=== PATIENT | female | born 1940 | race Caucasian/White ===

== ENCOUNTER → 2017-04-14 10:22 | Outpatient (CLI) | payer MEDICARE, OTHER ==
[2011-12-23 07:32] VITALS: BMI 32.5
== END | disposition home or self-care (01) ==
LOC: D.LAB 10:22 → D.CT 11:00
DX: I10 Essential (primary) hypertension (principal)

== ENCOUNTER → 2017-05-06 14:06 | Outpatient (CLI) | payer MEDICARE, OTHER ==
[2011-12-23 07:32] VITALS: BMI 32.5
== END | disposition home or self-care (01) ==
LOC: D.MAMMO 04-02 10:45
DX: Z12.31 Encounter for screening mammogram for malignant neoplasm of breast (principal)

== ENCOUNTER 2018-07-20 20:56 | Observation (INO) | payer MEDICARE, OTHER ==
--- NOTE | ~2018-07-20 | HEMODYNAMI ---
PATIENT:BASSAM VALENTIN MEDICAL RECORD: [id number] : 42 [facility] [id number] ADMISSION DATE: 07/20/18 Generatedon:07/21/201812:07 Patient name: BASSAM VALENTIN Patient #: [id number] SSN: : 1940 Date of study: 07/21/2018 Page: Of Hemodynamic Procedure Report Patient Data Patient Demographics Procedure consent was obtained First Name: BASSAM Gender: Female Last Name: HOMERO : 1940 Middle Initial: C Age: 77 year(s) Patient #: [id number] Race: Unknown Additional ID: [id number] Contact details Address: [address] State: [place] City: [place] Zip code: [address] Past Medical History Allergies: No known allergies Admission Admission Data Admission Date: 07/20/2018 Admission Time: 22:34 Room #: D.2124 Height (in.): 64 BSA: 1.89 (m2) Height (cm.): 162.56 BMI: 31.79 (kg/m2) Weight (lbs.): 185.19 Weight (kg.): 84 Lab Results Lab Result Date: 07/21/2018 Lab Result Time: 0:00 Biochemistry Name Units Result Min Max BUN mg/dl 41 --(----)-* 7 18 Creatinine mg/dl 1.3 --(---*)-- 0.6 1.3 CBC Name Units Result Min Max Hematocrit % 31.7 *-(----)-- 42 54 Hemoglobin g/dl 10.5 *-(----)-- 13.5 17.5 Procedure Procedure Types Cath Procedure Diagnostic Procedure [facility] w/Coronaries Procedure Description Procedure Date Procedure Date: 07/21/2018 Procedure Start Time: 11:55 Procedure End Time: 12:03 Procedure Staff Name Function Asa Mcdermott MD Performing Physician Karli Farr RT Monitor Felecia Aden RT Scrub Cristela Juarez RN Nurse Fuad Kaur RN First Mate Procedure Data Cath Procedure Fluoroscopy Diagnostic fluoroscopy Total fluoroscopy Time: 1.8 time: 1.8 min min Diagnostic fluoroscopy Total fluoroscopy dose: 436 dose: 436 mGy mGy Contrast Material Contrast Material Type Amount (ml) Isovue 300 36 Entry Location Entry Primary Successful Side Size Upsize Upsize Entry Closure [place] ccessful Closure Location (Fr) 1 (Fr) 2 (Fr) Remarks Device Remarks Radial Right 6 Fr Mechanical artery Short Compression Estimated blood loss: 5 ml Diagnostic catheters Device Type Used For End Catheter Placement DIAGNOSTIC Dresser 110cm 5 Multi-vessel Fr catheter ([id number]) Angiography Procedure Complications No complications Procedure Medications Medication Administration Route Dosage Oxygen etCO2 Nasal cannula 2 l/min Lidocaine 2% added to field 20 Heparin Flush Bag added to field 2 bags (1000units/500ml NS) Radial Cocktail I.A. 1 syringe (Verapomil 2mg/Nitro 400mcg/Heparin 1500units) Versed I.V. 1 mg Fentanyl I.V. 50 mcg Versed I.V. 1 mg Fentanyl I.V. 50 mcg Fentanyl I.V. 50 mcg Hemodynamics Rest BSA: 1.89 (m2) O2 Consumption: Estimated: 174.31 (ml/min) O2 Consumption indexed : Estimated:92.23 (ml/min/m) Heart Rate: 74 (bpm) Pressure Samples Time Site Value (mmHg) Purpose Heart Use Rate(bpm) 11:57 LV 127/-7,0 Snapshot 88 11:58 AO 124/55(83) Pullback 96 11:58 LV 122/-6,1 Pullback 96 Gradients Valve Time Site 1 Site 2 Mean SEP/DFP Peak To Heart Use (mmHg) (sec/min) Peak Rate (mmHg) (bpm) Aortic 11:58 LV AO 0 9 0 96 122/-6,1 124/55(83) Calculations Valve P-P Mean Valve Index Valve Source Name Gradient Area Flow (cm2) Aortic 0 0 0 0 Snapshots Pre Cath Intra NCS Post Cath Vital Signs Time Heart Resp SPO2 etCO2 NIBP (mmHg) Rhythm Pain Sedation Rate (ipm) (%) (mmHg) Status Level (bpm) 11:50:00 78 17 100 34.9 147/72(115) NSR 0 (11) 10(A) , No pain 11:54:20 68 13 95 0 133/66(105) NSR 0 (11) 10(A) , No pain 11:58:36 83 13 94 40.8 114/68(96) NSR 0 (11) 9(A) , No pain 12:02:44 84 13 95 31.9 122/69(107) NSR 0 (11) 10(A) , No pain Medications Time Medication Route Dose Verified Delivered Reason Notes Effectiveness by by 11:48:58 Oxygen etCO2 2 l/min Asa Buffie used for Nasal Baldemar Juarez RN procedure cannula 11:49:04 Lidocaine 2% added 20ml Asa Asa for local to vial Baldemar Mcdermott MD anesthetic field 11:49:12 Heparin Flush added 2 bags Asa Asa used for Bag to Baldemar Mcdermott MD procedure (1000units/500ml field NS) 11:53:41 Versed I.V. 1 mg Asa Buffie for sedation Baldemar Juarez RN 11:53:48 Fentanyl I.V. 50 mcg Asa Buffie for sedation Baldemar Juarez RN 11:56:00 Versed I.V. 1 mg Asa Buffie for sedation Baldemar Juarez RN 11:56:06 Fentanyl I.V. 50 mcg Asa Buffie for sedation Baldemar Juarez RN 11:57:13 Radial Cocktail I.A. 1 Asa Asa for (Verapomil syringe Baldemar Mcdermott MD vasodilation 2mg/Nitro 400mcg/Heparin 1500units) 12:00:42 Fentanyl I.V. 50 mcg Asa Buffie for sedation Baldemar Juarez RN Procedure Log Time Note 11:24:30 Signed procedure consent form obtained from patient. 11:24:31 Diagnostic Cath status Elective 11:24:32 Time tracking: Regular hours (M-F 7:00 - 5:00) 11:24:36 Plan of Care:Hemodynamics will remain stable., Cardiac rhythm will remain stable., Comfort level will be maintained., Respiratory function will remain adequate., Patient/ family verbilizes understanding of procedure., Procedure tolerated without complication., Recovers from procedure without complications.. 11:24:44 Patient allergic to No known allergies 11:25:17 Lab Result : BUN 41 mg/dl 11::17 Lab Result : Creatinine 1.3 mg/dl ::17 Lab Result : Hemoglobin 10.5 g/dl 11:25:17 Lab Result : Hematocrit 31.7 % 11:25:27 Patient Weight : 185.19 lbs 11:25:30 Patient Height : 64 inches 11:26:40 Fuad Kaur RN sent for patient. Start room use. 11:37:31 Patient received from Med II to CCL 2 Alert and oriented. Tansferred to table in Supine position. 11:37:32 Warm blankets applied, and sudha hugger turned on for patient comfort. 11:37:33 Correct patient and procedure confirmed by team. 11:37:33 ECG and BP/O2 sat monitors applied to patient. 11:48:47 Vital chart was started 11:48:58 Oxygen 2 l/min etCO2 Nasal cannula was administered by Cristela Juarez RN; used for procedure; 11:49:04 Lidocaine 2% 20ml vial added to field was administered by Asa Mcdermott MD; for local anesthetic; 11:49:12 Heparin Flush Bag (1000units/500ml NS) 2 bags added to field was administered by Asa Mcdermott MD; used for procedure; 11:49:24 Baseline sample Acquired. 11:49:30 Rhythm: sinus rhythm 11:49:32 Full Disclosure recording started 11:49:36 H&P Date Dictated: 07/21/2018 Within 30 days and on chart., H&P Addendum completed by physician on day of procedure. (MUST COMPLETE FOR ALL OUTPATIENTS). 11:49:37 Pre-procedure instructions explained to patient. 11:49:38 Pre-op teaching completed and patient verbalized understanding. 11:49:39 Family in waiting room. 11:49:40 Patient NPO since Midnight. 11:49:43 Was the patient premedicated? No 11:50:20 Patient diabetic? No. 11:50:23 Previous problem with sedation/anesthesia? No ? 11:50:24 Snore? Yes 11:50:26 Sleep apnea? No 11:50:27 Deviated septum? No 11:50:28 Opens mouth fully? Yes 11:50:28 Sticks out tongue? Yes 11:50:31 Airway obstruction? No ? 11:50:36 Dentures? Yes in tight 11:50:39 Pre procedure: right dorsailis pedis pulse 2+ Normal; easily identifiable; not easily obliterated 11:50:41 Pre procedure: left dorsailis pedis pulse 2+ Normal; easily identifiable; not easily obliterated 11:50:44 Patient pain scale 0/10 ?. 11:50:50 IV patent on arrival in left antecubital with 0.9% NaCl at O. 11:50:53 Lab results completed and on chart. 11:50:59 Right Radial & Right Groin area was prepped with chlora-prep and draped in sterile fashion 11:51:00 Alarms reviewed by R. N. 11:51:01 Sharps counted by scrub and verified by R.N. 11:51:02 Physician arrived 11:51:02 --------ALL STOP TIME OUT------ 11:51:03 Final Timeout: patient, procedure, and site verified with staff and physician. All members of the team are in agreement. 11:51:05 Right Radial & Right Groin site verified by team. 11:51:12 Maximum allowable Isovue 300 dose 300ml. Physician notified. (300ml for normal creatinines. For patients with creatinine of 1.7 or higher multiply weight(kg) x 5 divided by creatinine.) 11:51:17 Fire Safety Assessment: A--An alcohol-based skin anteseptic being used preoperatively., C--Open oxygen or nitrous oxide is being used., D--An ESU, laser, or fiber-optic light is being used. 11:51:20 Physical assessment completed. ASA score P 2 - A patient with mild systemic disease as per Asa Mcdermott MD. 11:51:23 Sedation plan: IV Moderate Sedation Medication:Versed, Fentanyl 11:51:27 Use device set Radial Dx or PCI 11:51:28 ACIST Syringe (82275) opened to sterile field. 11:51:28 Medline Cath Pack ([id number]) opened to sterile field. 11:51:29 Bag Decanter () opened to sterile field. 11:51:29 DIAGNOSTIC WIRE .035 260cm J wire (158932) opened to sterile field. 11:51:30 ACIST Hand Control (96000) opened to sterile field. 11:51:30 ACIST Manifold (53728) opened to sterile field. 11:51:31 Tegaderm 4 x 4 (1626W) opened to sterile field. 11:51:31 MBrace Wrist Support ([id number]) opened to sterile field. 11:51:32 NEEDLE Cook 21G 4cm Radial ([id number]) opened to sterile field. 11:51:33 SHEATH 6FR Slender (80-2780) opened to sterile field. 11:53:10 Procedure started. 11:53:41 Versed 1 mg I.V. was administered by Cristela Juarez RN; for sedation; 11:53:48 Fentanyl 50 mcg I.V. was administered by Cristela Juarez RN; for sedation; 11:55:15 Local anesthetic to right radial artery with Lidocaine 2% by Asa Mcdermott MD.INITIAL ACCESS ONLY 11:55:24 A 6 Fr Short sheath was inserted into the Right Radial artery 11:56:00 Versed 1 mg I.V. was administered by Cristela Juarez RN; for sedation; 11:56:06 Fentanyl 50 mcg I.V. was administered by Cristela Juarez RN; for sedation; 11:56:19 A DIAGNOSTIC Dresser 110cm 5 Fr catheter (763440) was advanced over the wire and used for Multi-vessel Angiography. 11:57:06 LV hemodynamics recorded. 11:57:09 LV gram done using LEON 11:57:11 Injector settings: Ml/sec: 5, Volume: 15, 11:57:13 Radial Cocktail (Verapomil 2mg/Nitro 400mcg/Heparin 1500units) 1 syringe I.A. was administered by Asa Mcdermott MD; for vasodilation; 11:58:08 EF : 60 % 11:59:10 LCA angiography performed. 11:59:15 Injector settings: Ml/sec: 3, Volume: 6, 12:00:42 Fentanyl 50 mcg I.V. was administered by Cristela Juarez RN; for sedation; 12:00:57 RCA angiography performed. 12:01:01 Injector settings: Ml/sec: 3, Volume: 6, 12:01:23 Catheter removed. 12:01:28 TR BAND Standard ([id number]) opened to sterile field. 12:01:56 Sheath removed intact; hemostasis achieved with Mechanical Compression to the Right Radial artery. 12:02:00 Procedure ended.(Physican Out) 12:02:30 Fluoroscopy time 01.80 minutes. 12:02:36 Fluoroscopy dose: 436 mGy 12:02:36 Flurop Dose total: 436 12:02:40 Contrast amount:Isovue 300 36ml. 12:02:42 Sharps counted by scrub and verified by R.N. 12:02:46 TR band inflated with 11cc of air. 12:02:47 Insertion/operative site no bleeding no hematoma. 12:02:49 Post Procedure Pulses reassessed and unchanged 12:02:52 Post procedure rhythm: unchanged. 12:02:56 Estimated blood loss: 5 ml 12:03:05 Post procedure instruction explained to patient.Patient verbalizes understanding. 12:03:06 Patient needs reinforcement of post procedure teaching. 12:03:13 Procedure and supply charges have been captured, reviewed, submitted and are correct. 12:03:17 Procedure Complication : No complications 12:03:19 Vital chart was stopped 12:03:20 See physician's report for complete and final results. 12:03:22 Report given to Med II. 12:03:33 Patient transfered to [facility] II with Stretcher. 12:03:35 Procedure ended. 12:03:35 Full Disclosure recording stopped 12:04:11 End room use (Document Last) Device Usage Item Name Manufacture Quantity Catalog Hospital Part Current Minimal Lot# / Number Charge Number Stock Stock Serial# Code ACIST Acist 1 25934 909372 759971 915598 20 Syringe Medical (56920) Systems Inc Medline Medline 1 [id number] 128890 57569 269222 5 Cath Pack ([id number]) Bag Microtek 1 2001S 659591 91383 609755 5 Decanter Medical Inc. () DIAGNOSTIC St Junaid 1 547430 184753 223720 455878 30 WIRE .035 260cm J wire (738734) ACIST Hand Acist 1 03066 777480 563252 587925 5 Control Medical (48834) Systems Inc ACIST Acist 1 87268 692252 501156 884362 5 Manifold Medical (10630) Systems Inc Tegaderm 4 3M 1 1626W 982320 425527 071312 5 x 4 (1626W) MBrace Advanced 1 140-0250-00 072223 74542 387606 5 Wrist Vascular Support Dynamics (863943035) NEEDLE FDTEK Medical 1 K67663 919846 706433 558925 5 21G 4cm Radial (G75606) SHEATH 6FR Terumo 1 [id number] 696949 185553 773957 5 Slender (29-1780) DIAGNOSTIC Terumo 1 40-8911 616227 359797 529586 5 Dresser 110cm 5 Fr catheter (103024) TR BAND Terumo 1 [id number] 966916 666471 932757 40 Standard ([id number]) Signature Audit [place] Stage Time Signature Unsigned Intra-Procedure 07/21/2018 Karli Farr 12:07:02 PM RT(R) Signatures Monitor : Karli Farr RT Signature : Date : Time : [id number] [place] [address]
[2018-07-20] MEDS ORDERED: HYDROCHLOROTH12.5 M1 PO (21:08)
[2018-07-20] MEDS ORDERED: MOBIC7.5 MG PO (21:08)
[2018-07-20] MEDS ORDERED: LISINOPRIL40 MG PO (21:08)
[2018-07-20] MEDS ORDERED: LIPITOR40 MG (21:08)
[2018-07-20] MEDS ORDERED: NORVASC5 MG PO (21:09)
[2018-07-20 21:19] VITALS: BP 149/72
[2018-07-20 21:24] LABS: BASOPHILS 0.3 % (0-2); EOSINOPHILS 4.2 % (0-7); HEMATOCRIT 33.9 % (36.0-48.0); HEMOGLOBIN 11.4 g/dL (12-16); IMMATURE GRANULOCYTES 0.4 % (0-5); LYMPHOCYTES 37.7 % (15-50); MCH 30.6 pg (26.0-34.0); MCHC 33.6 g/dL (31.0-37.0); MCV 90.9 fL (80.0-100.0); MEAN PLATELET VOLUME 8.6 fL (7.4-10.4); MONOCYTES 8.3 % (2-11); NEUTROPHILS 49.1 % (40-80); PLATELET COUNT 262 10x3/uL (130-400); RBC 3.73 10x6/uL (4.00-5.40); RDW 13.7 % (11.5-14.5); WBC 7.6 10x3/uL (4.8-10.8)
[2018-07-20 21:54] LABS: ALBUMIN 3.6 g/dL (3.4-5.0); ALKALINE PHOSPHATASE 76 U/L (46-116); ALT (SGPT) 26 U/L (10-68); BILIRUBIN - TOTAL 0.22 mg/dL (0.2-1.3); CALC OSMOLALITY 277 mosm/kg (275-300); CARBON DIOXIDE 24.6 mmol/L (21.0-32.0); CHLORIDE - SERUM 99 mmol/L (98-107); CKMB 4.6 U/L (0.0-3.6); GLUCOSE 103 mg/dL (74-106); POTASSIUM - SERUM 4.4 mmol/L (3.5-5.1); PROTEIN - SERUM 7.5 g/dL (6.4-8.2); SODIUM 134 mmol/L (136-145); UREA NITROGEN 41 mg/dL (7-18)
[2018-07-20 22:02] LABS: APTT 31.8 SECONDS (22.8-39.4); INR 0.9 (0.85-1.17); PROTIME 11.7 SECONDS (11.6-15.0)
[2018-07-20 22:15] LABS: CALCIUM 8.4 mg/dL (8.5-10.1); CREATINE KINASE 225 UL (21-215); CREATININE - SERUM 1.3 mg/dL (0.6-1.3); TROPONIN-I < 0.017 ng/mL (0.000-0.060); eGFR NON AFRICAN AMERICAN 42 mL/min (90-120)
[2018-07-21] VITALS: BP 120/64
[2018-07-21 04:01] VITALS: BMI 28.7
[2018-07-21 05:02] VITALS: BP 131/73
[2018-07-21 05:39] LABS: CKMB 3.7 U/L (0.0-3.6); CREATINE KINASE 169 UL (21-215)
[2018-07-21 05:40] LABS: TROPONIN-I < 0.017 ng/mL (0.000-0.060)
[2018-07-21 07:13] LABS: BASOPHILS 0.3 % (0-2); EOSINOPHILS 5.3 % (0-7); HEMATOCRIT 31.7 % (36.0-48.0); HEMOGLOBIN 10.5 g/dL (12-16); IMMATURE GRANULOCYTES 0.2 % (0-5); LYMPHOCYTES 37.1 % (15-50); MCH 30.2 pg (26.0-34.0); MCHC 33.1 g/dL (31.0-37.0); MCV 91.1 fL (80.0-100.0); MEAN PLATELET VOLUME 8.9 fL (7.4-10.4); MONOCYTES 12.3 % (2-11); NEUTROPHILS 44.8 % (40-80); PLATELET COUNT 262 10x3/uL (130-400); RBC 3.48 10x6/uL (4.00-5.40); RDW 13.9 % (11.5-14.5); WBC 6.3 10x3/uL (4.8-10.8)
[2018-07-21 07:18] LABS: ANION GAP 13.1 mmol/L (8-16); CALCIUM 8.4 mg/dL (8.5-10.1); CARBON DIOXIDE 26.1 mmol/L (21.0-32.0); CREATININE - SERUM 1.1 mg/dL (0.6-1.3); POTASSIUM - SERUM 4.2 mmol/L (3.5-5.1)
[2018-07-21 09:39] VITALS: BP 139/61
[2018-07-21 11:45] VITALS: BP 116/63
[2018-07-21] MEDS ORDERED: OMNICEF300 MG PO (15:25)
[2018-07-21 16:48] VITALS: BP 113/55
--- NOTE | 2018-07-22 08:44 | MORECARE ---
CASE MANAGEMENT DISCHARGE SUMMARY PATIENT: BASSAM VALENTIN UNIT: [id number] ADM DATE: 07/20/18 AGE: 77 : 41 SEX: F ROOM/BED: D.7835 AUTHOR: LUIS ARMANDO CORONADO PHYSICIAN: REFERRING PHYSICIAN: ADELITA JEAN DO DATE OF SERVICE: 07/22/18 Discharge Plan Patient Name: [facility]ASSAM VALENTIN [facility] [facility] 1940 Planned Disposition: Home Anticipated Discharge Date: 07/21/18 Discharge Date: 07/21/2018 Expected LOS: 1 Initial Reviewer: [email or web address] Initial Review Date: 07/22/2018 Generated: 07/22/18 9:44 am Patient Name: BASSAM VALENTIN Page [phone] at 0844 All edits/amendments must be made on the electronic document DICTATION DATE: 07/22/18843 RETAIL BUYER: ROBINA 07/22/1844 RPT#: [id number] DC DATE:07/21/18 STATUS: DIS IN [facility] [address] [place] [address] END OF REPORT
== END 2018-07-21 18:37 | disposition home or self-care (01) ==
LOC: D.ER 20:56 → D.EDHOLD 22:34 → D.M2 23:14
PROVIDERS: Emergency Medicine; Internal Medicine Cardiovascular Disease; ADMIT Family Medicine
DX: R07.89 Other chest pain (principal); Q24.5 Malformation of coronary vessels; I10 Essential (primary) hypertension; E11.65 Type 2 diabetes mellitus with hyperglycemia; J40 Bronchitis, not specified as acute or chronic; M54.9 Dorsalgia, unspecified; G89.29 Other chronic pain

== ENCOUNTER 2018-08-01 02:56 | Inpatient (IN) | payer MEDICARE, OTHER ==
[~2018-08-01] VITALS: Ht 160 cm; Wt 84.5 kg
[~2018-08-01 02:56] MED LIST: HYDROCHLOROTH12.5 M1 PO; LIPITOR40 MG PO; LISINOPRIL40 MG PO; MOBIC7.5 MG PO; NORVASC5 MG PO; OMNICEF300 MG PO
[2018-08-01 03:36] LABS: BASOPHILS 0.1 % (0-2); EOSINOPHILS 0.5 % (0-7); HEMATOCRIT 34.4 % (36.0-48.0); HEMOGLOBIN 11.5 g/dL (12-16); IMMATURE GRANULOCYTES 0.2 % (0-5); LYMPHOCYTES 12.1 % (15-50); MCH 30.8 pg (26.0-34.0); MCHC 33.4 g/dL (31.0-37.0); MCV 92.2 fL (80.0-100.0); MEAN PLATELET VOLUME 8.6 fL (7.4-10.4); MONOCYTES 8.3 % (2-11); NEUTROPHILS 78.8 % (40-80); RBC 3.73 10x6/uL (4.00-5.40); RDW 14.4 % (11.5-14.5); WBC 15.2 10x3/uL (4.8-10.8)
[2018-08-01 03:39] LABS: PLATELET COUNT 317 10x3/uL (130-400)
[2018-08-01 03:47] LABS: APTT 28.3 SECONDS (22.8-39.4); INR 0.94 (0.85-1.17); PROTIME 12.1 SECONDS (11.6-15.0)
[2018-08-01 04:01] LABS: ALBUMIN 3.3 g/dL (3.4-5.0); ALKALINE PHOSPHATASE 76 U/L (46-116); ALT (SGPT) 25 U/L (10-68); BILIRUBIN - TOTAL 0.39 mg/dL (0.2-1.3); CALC OSMOLALITY 284 mosm/kg (275-300); CALCIUM 8.3 mg/dL (8.5-10.1); CARBON DIOXIDE 27.4 mmol/L (21.0-32.0); CHLORIDE - SERUM 102 mmol/L (98-107); CREATININE - SERUM 1.1 mg/dL (0.6-1.3); GLUCOSE 113 mg/dL (74-106); POTASSIUM - SERUM 3.9 mmol/L (3.5-5.1); PROTEIN - SERUM 7.1 g/dL (6.4-8.2); SODIUM 139 mmol/L (136-145); UREA NITROGEN 30 mg/dL (7-18); eGFR NON AFRICAN AMERICAN 51 mL/min (90-120)
[2018-08-01 04:04] LABS: CKMB 1.2 U/L (0.0-3.6); CREATINE KINASE 83 UL (21-215)
[2018-08-01 04:18] LABS: TROPONIN-I < 0.017 ng/mL (0.000-0.060)
[2018-08-01 04:21] LABS: APPEARANCE HAZY (CLEAR); BILIRUBIN NEGATIVE (NEGATIVE); COLOR YELLOW (YELLOW); GLUCOSE NEGATIVE (NEGATIVE); KETONE NEGATIVE (NEGATIVE); NITRITE NEGATIVE (NEGATIVE); PROTEIN NEGATIVE (NEGATIVE); SPECIFIC GRAVITY 1.015 (1.005-1.020); UROBILINOGEN NORMAL (NORMAL)
[2018-08-01 04:30] VITALS: BP 125/58
--- NOTE | 2018-08-01 05:02 | NUR ---
FROM ER VIA WC TO BED THAT IS LOW AND LOCKED CALL LIGHTR GIVEN TO PT PT IS ALERT AND ORIETED AT THIS TIME SKIN GOOD LCTA CO HEADACHE AT THIS TIME IV TO LEFT AC PATENT
[2018-08-01 05:13] VITALS: BP 110/59; BMI 32.6
[2018-08-01 05:55] VITALS: BP 110/59
[2018-08-01 08:08] VITALS: BP 126/54
[2018-08-01 12:08] VITALS: BP 109/49
[2018-08-01 22:04] VITALS: BP 120/56
[2018-08-02 00:04] VITALS: BP 125/54
--- NOTE | 2018-08-02 04:28 | NUR ---
I have reviewed this patient and I concur with the Shift Assessment completed by the Licensed Practical Nurse today this shift.
[2018-08-02 05:55] VITALS: BP 118/49
[2018-08-02 06:52] LABS: ALBUMIN 2.6 g/dL (3.4-5.0); ANION GAP 13.7 mmol/L (8-16); BILIRUBIN - TOTAL 0.38 mg/dL (0.2-1.3); CALCIUM 7.8 mg/dL (8.5-10.1); CREATININE - SERUM 0.9 mg/dL (0.6-1.3); POTASSIUM - SERUM 3.7 mmol/L (3.5-5.1)
--- NOTE | 2018-08-02 07:00 | NUR ---
RECEIVED REPORT. ASSUMED CARE OF PATIENT. CALL LIGHT WITHIN REACH. PATIENT WITH EYES OPEN, RESP EVEN AND UNLABORED. NO DISTRESS. DENIES NEEDS. PATIENT HAS STUDENT NURSE THIS AM. PATIENT VERY TALKATIVE AND SMILING.
[2018-08-02 07:28] LABS: HEMATOCRIT 29.7 % (36.0-48.0); HEMOGLOBIN 9.9 g/dL (12-16); MCH 30.6 pg (26.0-34.0); MCHC 33.3 g/dL (31.0-37.0); MCV 91.7 fL (80.0-100.0); MEAN PLATELET VOLUME 9.8 fL (7.4-10.4); PLATELET COUNT 264 10x3/uL (130-400); RBC 3.24 10x6/uL (4.00-5.40); RDW 14.4 % (11.5-14.5); WBC 14.2 10x3/uL (4.8-10.8)
[2018-08-02 07:42] VITALS: BP 106/40
[2018-08-02 08:05] LABS: ANISOCYTOSIS OCC; EOSINOPHILS 2 % (0-7); HYPOCHROMASIA OCC; LYMPHOCYTES 18 % (15-50); MONOCYTES 14 % (2-11); NEUTROPHILS 62 % (40-80); PLATELET ESTIMATE NORMAL; ROULEAUX OCC; SMUDGE CELLS OCC
--- NOTE | 2018-08-02 11:01 | NUR ---
NPO FOR CTA OF CHEST THIS AFTERNOON.
[2018-08-02 11:25] VITALS: BP 127/66
--- NOTE | 2018-08-02 11:38 | NUR ---
FSBS 93. NO INSULIN PER SLIDING SCALE. NO DISTRESS.
[2018-08-02 14:02] VITALS: Ht 160 cm; Wt 84.5 kg
--- NOTE | 2018-08-02 14:06 | NUR ---
CALLED RADIOLOGY TO SEE WHEN THEY WOULD COME GET PATIENT FOR CTA OF CHEST. SPOKE WITH DAE AND DAE TRANSFERRED ME TO 1333. NO ANSWER.
--- NOTE | 2018-08-02 15:15 | NUR ---
PATIENT LEFT UNIT VIA WHEELCHAIR FOR CTA OF CHEST. NO DISTRESS.
[2018-08-02 15:26] VITALS: BP 129/43
--- NOTE | 2018-08-02 15:43 | NUR ---
RETURNED FROM HAVING CTA OF CHEST. NO DISTRESS. IV FLUIDS INFUSING ORDERED. PATIENT NOW CONSUMING SANDWICH AND ORANGES. CALL LIGHT WITHIN REACH. NO DISTRESS.
--- NOTE | 2018-08-02 16:37 | NUR ---
FSBS 143. NO INSULIN PER SLIDING SCALE. NO DISTRESS.
--- NOTE | 2018-08-02 19:25 | NUR ---
BED LOW AND CALL LIGHT IN REACH PT WANTING TO GET UP FOR SHOWER AND I ASSISTED WITH RETRIEVING TOWELS AND STOPPING IV....DENIES PAIN AT THIS TIME LCTA SKIN WARM AND DRY PT ALERT AND UP ADLIB
[2018-08-02 21:27] VITALS: BP 159/73
[2018-08-03 00:38] VITALS: BP 101/50
[2018-08-03 05:35] LABS: BASOPHILS 0.3 % (0-2); EOSINOPHILS 4.3 % (0-7); HEMATOCRIT 29.8 % (36.0-48.0); HEMOGLOBIN 9.8 g/dL (12-16); IMMATURE GRANULOCYTES 0.1 % (0-5); LYMPHOCYTES 26.4 % (15-50); MCH 30.2 pg (26.0-34.0); MCHC 32.9 g/dL (31.0-37.0); MEAN PLATELET VOLUME 8.9 fL (7.4-10.4); MONOCYTES 15.1 % (2-11); NEUTROPHILS 53.8 % (40-80); PLATELET COUNT 274 10x3/uL (130-400); RBC 3.24 10x6/uL (4.00-5.40); RDW 14.5 % (11.5-14.5)
[2018-08-03 05:40] LABS: WBC 7.5 10x3/uL (4.8-10.8)
[2018-08-03 06:15] VITALS: BP 128/58
[2018-08-03 06:27] LABS: ALBUMIN 2.6 g/dL (3.4-5.0); ANION GAP 10.1 mmol/L (8-16); BILIRUBIN - TOTAL 0.14 mg/dL (0.2-1.3); CALCIUM 7.8 mg/dL (8.5-10.1); CARBON DIOXIDE 26.8 mmol/L (21.0-32.0); POTASSIUM - SERUM 3.9 mmol/L (3.5-5.1); PROTEIN - SERUM 5.9 g/dL (6.4-8.2)
[2018-08-03 08:03] VITALS: BP 150/61
--- NOTE | 2018-08-03 10:46 | NUR ---
PTS PIV INFILTRATED AND SHE REQUESTED NOT TO HAVE ANOTHER ONE HAD JUST ROUNDED AND STATED SHE CAN BE COVERTED TO [facility] AND BE DISCHARGED. WILL DISCUSS WITH PRIMARY AND SEE ABOUT DISCHARGE PLANNING.
--- NOTE | 2018-08-03 11:32 | NUR ---
PRIMARY STATES PT WILL BE DISCHARGED, MAY LEAVE PIV OUT. NO CURRENT NEEDS.
[2018-08-03 11:50] VITALS: BP 123/55
[2018-08-03] MEDS ORDERED: MUCINEX DM ER1 EAC1 PO (12:18)
[2018-08-03] MEDS ORDERED: FLUTICASONE PRO16 GM NASAL (12:19)
[2018-08-03] MEDS ORDERED: TESSALON PERLE100 MG PO (12:19)
[2018-08-03] MEDS ORDERED: LEVAQUIN750 MG PO (12:19)
[2018-08-03] MEDS ORDERED: SINGULAIR10 MG PO (12:19)
--- NOTE | 2018-08-03 14:09 | NUR ---
DISCHARGE TEACHING PROVIDED AND PAPERS SIGNED. PT VERBALIZED UNDERSTANDING AND DENIES ANY QUESTIONS OR CONCERNS. ALL BELONGING COLLECTED AND PT HAS CALLED HER FRIEND FOR TRANSPORTATION. NO FURTHER NEEDS.
--- NOTE | 2018-08-03 14:39 | NUR ---
PT LEAVING NOW. NO FURTHER.
--- NOTE | 2018-08-03 14:47 | MORECARE ---
CASE MANAGEMENT DISCHARGE SUMMARY PATIENT: BASSAM VALENTIN UNIT: [id number] ADM DATE: 08/01/18 AGE: 77 : 41 SEX: F ROOM/BED: D.1658 AUTHOR: LUIS ARMANDO CORONADO PHYSICIAN: REFERRING PHYSICIAN: SALLY MONTOYA MD DATE OF SERVICE: 08/03/18 Discharge Plan Patient Name: BASSAM VALENTIN [facility]:[place] : 1940 Planned Disposition: Home Anticipated Discharge Date: 08/03/18 Discharge Date: 08/03/2018 Expected LOS: 2 Initial Reviewer: [email or web address] Initial Review Date: 08/03/2018 Generated: 08/03/18 3:46 pm Comments DCP- Discharge Planning Updated by [email or web address]: Teo Antony on 08/03/18 1:[address] Patient Name: BASSAM VALENTIN Admission Status: ER Accout number: [id number] Admission Date: 08-01-2018 : 1940 Admission Diagnosis: Attending: SALLY MONTOYA Current LOS: 2 Anticipated DC Date: 08-03-2018 Planned Disposition: Home Primary Insurance: MEDICARE A & B Discharge Planning Comments: CM RECEIVED DISCHARGE ORDER, ATTEMPTED TO SEE PT IN ROOM TO ASSESS FOR DISCHARGE NEEDS AND PROVIDE AN IMPORTANT MESSAGE FROM MEDICARE. PT HAD BEEN DISCHARGE HOME ALREADY AND LEFT THE ROOM. Core Piler: Teo Antony Patient Name: BASSAM VALENTIN Page 33240 at 1447 All edits/amendments must be made on the electronic document DICTATION DATE: 08/03/18 1446 TOUCH UP CARVER: ROBINA 08/03/18 1446 RPT#: [id number] DC DATE:08/03/18 STATUS: DIS IN [facility] [address] [place] [address] END OF REPORT
== END 2018-08-03 14:40 | disposition home or self-care (01) | DRG 179 ==
LOC: D.ER 02:56 → D.M2 04:07
PROVIDERS: Family Medicine; Family Medicine Adult Medicine; ADMIT Internal Medicine Nephrology; ATTEND Internal Medicine Nephrology
DX: J15.6 Pneumonia due to other Gram-negative bacteria (principal); D64.9 Anemia, unspecified; E11.65 Type 2 diabetes mellitus with hyperglycemia; I10 Essential (primary) hypertension; M19.90 Unspecified osteoarthritis, unspecified site; K21.9 Gastro-esophageal reflux disease without esophagitis; E78.5 Hyperlipidemia, unspecified; J30.9 Allergic rhinitis, unspecified

== ENCOUNTER 2018-12-02 09:00 | Outpatient (CLI) | payer MEDICARE, OTHER ==
[2018-08-02 14:02] VITALS: BMI 29.4
[~2018-12-02 09:00] MED LIST changes: +FLUTICASONE PRO16 GM NASAL; +LEVAQUIN750 MG PO; +MUCINEX DM ER1 EAC1 PO; +SINGULAIR10 MG PO; +TESSALON PERLE100 MG PO
== END 2018-12-02 10:00 | disposition home or self-care (01) ==
LOC: D.MAMMO 09:00
PROVIDERS: ATTEND Family Medicine
DX: Z12.31 Encounter for screening mammogram for malignant neoplasm of breast (principal)

== ENCOUNTER → 2019-01-16 13:45 | Outpatient (CLI) | payer MEDICARE, OTHER ==
[2018-08-02 14:02] VITALS: BMI 29.4
== END | disposition home or self-care (01) ==
LOC: D.RAD 13:45
PROVIDERS: ATTEND Pain Medicine Interventional Pain Medicine
DX: M46.87 Other specified inflammatory spondylopathies, lumbosacral region (principal); M47.817 Spondylosis without myelopathy or radiculopathy, lumbosacral region; M47.897 Other spondylosis, lumbosacral region

== ENCOUNTER → 2020-01-04 11:30 | Outpatient (CLI) | payer MEDICARE, OTHER ==
[2019-05-06 10:23] VITALS: BMI 32.4
[~2020-01-04 11:30] MED LIST changes: +ASPIRIN325 MG PO; +KEFLEX500 MG PO
== END | disposition home or self-care (01) ==
LOC: D.MAMMO 11:30
PROVIDERS: ATTEND Internal Medicine Gastroenterology
DX: Z12.31 Encounter for screening mammogram for malignant neoplasm of breast (principal)